=== PATIENT | male | born 1975 | race Two or more races ===

== ENCOUNTER 2020-12-08 17:36 | Inpatient (IN) | payer MEDICAID ==
[~2020-12-08] VITALS: Ht 180.3 cm; Wt 82.1 kg
[2020-12-08] MEDS ORDERED: ACETAMINOPHEN 500 MG TAB PO ONE (18:30)
[2020-12-08 18:48] LABS: Basophils # (auto) 0 10 ^3/uL (0-0.2); Eosinophils # (auto) 0 10 ^3/uL (0-0.8); Hematocrit 45.6 % (41.0-53.0); Hemoglobin 15.7 g/dL (13.5-17.5); Lymphocytes # (auto) 0.6 10 ^3/uL (0.4-5.4); Lymphocytes % (auto) 6.4 % (10.0-50.0); Mean Corpuscular Hemoglobin 29.1 pg (28.0-32.0); Mean Corpuscular Hgb Conc. 34.5 g/dL (32.0-36.0); Mean Corpuscular Volume 84.3 fL (80.0-100.0); Monocytes # (auto) 0.5 10 ^3/uL (0-1.3); Monocytes % (auto) 5.3 % (0.0-12.0); Neutrophils # (auto) 8.3 10 ^3/uL (1.6-8.6); Neutrophils % (auto) 88.3 % (37.0-80.0); Nucleated Red Blood Cells % 0.1 %; Red Blood Cells 5.41 10^6/uL (4.5-5.90); Red Cell Distribution Width 13.7 % (11.8-14.3); White Blood Cell 9.4 10^3/uL (4.4-10.8)
[2020-12-08] MEDS ORDERED: ZINC SULFATE 220mg CAP or TAB PO ONE (19:15)
[2020-12-08] MEDS ORDERED: methylPREDNISolone SOD SUCC 125 MG/2 ML VL IV ONE (19:15)
[2020-12-08] MEDS ORDERED: CHOLECALCIFEROL (VITD3) 2,000 UNIT CAP/TAB PO ONE (19:15)
[2020-12-08] MEDS ORDERED: ASCORBIC ACID 500 MG TAB PO ONE (19:15)
[2020-12-08] MEDS ORDERED: AZITHROMYCIN 500MG/ 250ML 250 ML IV ONE (19:15)
[2020-12-08 19:28] LABS: Albumin 2.9 g/dL (3.4-5.0); Anion Gap 9 (5-15); Blood Urea Nitrogen 18 mg/dL (7-18); Calcium 8.4 mg/dL (8.5-10.1); Carbon Dioxide 25 mmol/L (21-32); Chloride 100 mmol/L (98-107); Glucose 127 mg/dL (74-106); Potassium 4.4 mmol/L (3.5-5.1); Sodium 134 mmol/L (136-145)
[2020-12-08 19:30] LABS: Alanine Aminotransferase 89 U/L (16-61); Aspartate Aminotransferase 90 U/L (15-37); BUN/Creatinine Ratio 16.2; GFR African American 93 mL/min; GFR Non-African American 76 mL/min
[2020-12-08 19:33] LABS: Alkaline Phosphatase 223 U/L (45-117); Bilirubin, Total 0.8 mg/dL (0.2-1.0)
[2020-12-08] MEDS ORDERED: IOHEXOL 350 MG/ML 100ML IJ ONE (20:09)
[2020-12-08] MEDS ORDERED: NITROGLYCERIN 0.4 MG SL TAB SL PRN (21:45)
[2020-12-08] MEDS ORDERED: ONDANSETRON HCL 4 MG/2 ML VIAL IV PRN (21:45)
[2020-12-08] MEDS ORDERED: ACETAMINOPHEN 500 MG TAB PO PRN (21:45)
[2020-12-08] MEDS ORDERED: MORPHINE SULFATE INJECTION 2 MG/ML SYRG IV PRN (21:45)
[2020-12-08] MEDS ORDERED: HYDROcodone-ACET 5/325MG TAB PO PRN (21:45)
[2020-12-08] MEDS: ENOXAPARIN SOD 40 MG/0.4 ML SYRINGE SC SCH (22:17)
[2020-12-08] MEDS: DOXYCYCLINE 100MG/250ML 250 ML IV SCH (22:17)
[2020-12-08] MEDS: FAMOTIDINE (10MG/ML) 2ML VL IV SCH (22:17)
[2020-12-08] MEDS: BUDESONIDE (INHALATION) 180 MCG IH IN SCH (22:35)
[2020-12-09] VITALS (9 sets, daily range): BP systolic 104–116; BP diastolic 60–75
[2020-12-09 06:31] LABS: Potassium 4.6 mmol/L (3.5-5.1)
[2020-12-09 06:40] LABS: Albumin 2.5 g/dL (3.4-5.0); BUN/Creatinine Ratio 18.7; Bilirubin, Total 0.6 mg/dL (0.2-1.0); Calcium 8.2 mg/dL (8.5-10.1); Magnesium 3.4 mg/dL (1.6-2.6); Total Protein 7.3 g/dL (6.4-8.2)
[2020-12-09 07:36] LABS: Hematocrit 43.9 % (41.0-53.0); Hemoglobin 15.1 g/dL (13.5-17.5); Mean Corpuscular Hemoglobin 29.2 pg (28.0-32.0); Mean Corpuscular Hgb Conc. 34.4 g/dL (32.0-36.0); Mean Corpuscular Volume 84.9 fL (80.0-100.0); Red Blood Cells 5.18 10^6/uL (4.5-5.90); Red Cell Distribution Width 13.7 % (11.8-14.3); White Blood Cell 8.2 10^3/uL (4.4-10.8)
[2020-12-09 07:45] LABS: Basophils % (manual) 0 (0.0-2.0); Blast Cells 0; Eosinophils % (manual) 0 (0-7); Metamyelocytes % 0; Myelocytes % 0; Promyelocytes % 0; Reactive Lymphocytes 0
[2020-12-09 08:57] LABS: Band Neutrophils % (manual) 5; Lymphocytes % (manual) 6 (10.0-50.0); Monocytes % (manual) 2 (0-12)
[2020-12-09] MEDS: ZINC SULFATE 220mg CAP or TAB PO SCH (09:32)
[2020-12-09] MEDS: MULTIPLE VITAMIN TAB PO SCH (09:32)
[2020-12-09] MEDS: FAMOTIDINE (10MG/ML) 2ML VL IV SCH ×2 (09:33→22:36)
[2020-12-09] MEDS: CHOLECALCIFEROL (VITD3) 2,000 UNIT CAP/TAB PO SCH (09:33)
[2020-12-09] MEDS: ASCORBIC ACID 1,000 MG TAB PO SCH (09:33)
[2020-12-09] MEDS: DexAMETHasone SOD PHOS 10MG/1ML VIAL INJ IV SCH (09:33)
[2020-12-09] MEDS: DOXYCYCLINE 100MG/250ML 250 ML IV SCH ×2 (09:55→22:37)
[2020-12-09] MEDS: ENOXAPARIN SOD 40 MG/0.4 ML SYRINGE SC SCH ×2 (09:55→22:36)
[2020-12-09] MEDS: BUDESONIDE (INHALATION) 180 MCG IH IN SCH ×2 (10:00→22:10)
[2020-12-09] MEDS: ALBUTEROL SULF HFA 90MCG INH 200DOSE IN PRN ×2 (11:32→22:10)
[2020-12-09] MEDS ORDERED: REMDESIVIR PER PHARMACY 0 ML IV SCH (12:30)
[2020-12-09] MEDS ORDERED: REMDESIVIR 200 MG in NS 210ml LOADING DOSE ADULT IV ONE (15:00)
[2020-12-09] MEDS: IVERMECTIN 3 MG TAB PO SCH (15:08)
[2020-12-09] MEDS ORDERED: cefTRIAXone 1GM/50ML D5W 50 ML IV ONE (17:00)
[2020-12-10 05:00] VITALS: BP 106/68
[2020-12-10] MEDS: ALBUTEROL SULF HFA 90MCG INH 200DOSE IN PRN ×2 (07:40→18:59)
[2020-12-10] MEDS: BUDESONIDE (INHALATION) 180 MCG IH IN SCH ×2 (07:40→18:59)
[2020-12-10 08:54] VITALS: BP 121/73
[2020-12-10] MEDS: cefTRIAXone 1GM/50ML D5W 50 ML IV SCH (09:06)
[2020-12-10] MEDS: FAMOTIDINE (10MG/ML) 2ML VL IV SCH ×2 (09:07→21:37)
[2020-12-10] MEDS: ENOXAPARIN SOD 40 MG/0.4 ML SYRINGE SC SCH ×2 (09:07→21:38)
[2020-12-10] MEDS: MULTIPLE VITAMIN TAB PO SCH (09:07)
[2020-12-10] MEDS: ZINC SULFATE 220mg CAP or TAB PO SCH (09:07)
[2020-12-10] MEDS: DexAMETHasone SOD PHOS 10MG/1ML VIAL INJ IV SCH (09:07)
[2020-12-10] MEDS: CHOLECALCIFEROL (VITD3) 2,000 UNIT CAP/TAB PO SCH (09:07)
[2020-12-10] MEDS: IVERMECTIN 3 MG TAB PO SCH (09:07)
[2020-12-10] MEDS: ASCORBIC ACID 1,000 MG TAB PO SCH (09:07)
[2020-12-10] MEDS: DOXYCYCLINE 100MG/250ML 250 ML IV SCH ×2 (10:50→21:38)
[2020-12-10 13:00] VITALS: BP 122/77
[2020-12-10] MEDS: REMDESIVIR 100mg 100 MG in SODIUM CHL 0.9% 230 ML IV SCH (15:20)
[2020-12-10 17:00] VITALS: BP 117/76
[2020-12-10] MEDS ORDERED: TOCILIZUMAB 400 MG in SODIUM CHL 0.9% 80 ML IV ONE (17:00)
[2020-12-10 22:00] VITALS: BP 128/72
[2020-12-11] VITALS (7 sets, daily range): BP systolic 104–118; BP diastolic 67–74
[2020-12-11] MEDS: ALBUTEROL SULF HFA 90MCG INH 200DOSE IN PRN ×2 (07:40→21:46)
[2020-12-11] MEDS: BUDESONIDE (INHALATION) 180 MCG IH IN SCH ×2 (07:40→21:46)
[2020-12-11] MEDS ORDERED: TOCILIZUMAB 400 MG in SODIUM CHL 0.9% 80 ML IV ONE ×2 (08:00→09:00)
[2020-12-11] MEDS: FAMOTIDINE (10MG/ML) 2ML VL IV SCH ×2 (09:55→22:02)
[2020-12-11] MEDS: cefTRIAXone 1GM/50ML D5W 50 ML IV SCH (09:55)
[2020-12-11] MEDS: DexAMETHasone SOD PHOS 10MG/1ML VIAL INJ IV SCH (09:55)
[2020-12-11] MEDS: ASCORBIC ACID 1,000 MG TAB PO SCH (09:56)
[2020-12-11] MEDS: ZINC SULFATE 220mg CAP or TAB PO SCH (09:56)
[2020-12-11] MEDS: CHOLECALCIFEROL (VITD3) 2,000 UNIT CAP/TAB PO SCH (09:56)
[2020-12-11] MEDS: IVERMECTIN 3 MG TAB PO SCH (09:56)
[2020-12-11] MEDS: MULTIPLE VITAMIN TAB PO SCH (09:56)
[2020-12-11] MEDS: ENOXAPARIN SOD 40 MG/0.4 ML SYRINGE SC SCH ×2 (10:00→22:03)
[2020-12-11] MEDS: DOXYCYCLINE 100MG/250ML 250 ML IV SCH ×2 (10:47→22:03)
[2020-12-11] MEDS: REMDESIVIR 100mg 100 MG in SODIUM CHL 0.9% 230 ML IV SCH (15:01)
[2020-12-12 05:00] VITALS: BP 104/56
[2020-12-12 06:31] LABS: Hematocrit 44.5 % (41.0-53.0); Hemoglobin 15.6 g/dL (13.5-17.5); Mean Corpuscular Hemoglobin 29.8 pg (28.0-32.0); Mean Corpuscular Hgb Conc. 35.1 g/dL (32.0-36.0); Red Blood Cells 5.24 10^6/uL (4.5-5.90); Red Cell Distribution Width 13.7 % (11.8-14.3); White Blood Cell 6.3 10^3/uL (4.4-10.8)
[2020-12-12 06:34] LABS: Basophils % (manual) 0 (0.0-2.0); Blast Cells 0; Eosinophils % (manual) 0 (0-7); Promyelocytes % 0
[2020-12-12 06:48] LABS: Albumin 2.4 g/dL (3.4-5.0); Calcium 8.3 mg/dL (8.5-10.1); Potassium 4.8 mmol/L (3.5-5.1)
[2020-12-12 06:52] LABS: Band Neutrophils % (manual) 18; Lymphocytes % (manual) 16 (10.0-50.0); Metamyelocytes % 2; Monocytes % (manual) 2 (0-12); Myelocytes % 3; Reactive Lymphocytes 1
[2020-12-12 06:53] LABS: BUN/Creatinine Ratio 30.3; Bilirubin, Total 0.6 mg/dL (0.2-1.0); Total Protein 6.7 g/dL (6.4-8.2)
[2020-12-12 08:25] VITALS: BP 113/82
[2020-12-12 08:46] VITALS: BP 113/82
[2020-12-12] MEDS: BUDESONIDE (INHALATION) 180 MCG IH IN SCH ×2 (09:15→23:25)
[2020-12-12] MEDS: ALBUTEROL SULF HFA 90MCG INH 200DOSE IN PRN ×2 (09:15→23:25)
[2020-12-12] MEDS: cefTRIAXone 1GM/50ML D5W 50 ML IV SCH (09:18)
[2020-12-12] MEDS: FAMOTIDINE (10MG/ML) 2ML VL IV SCH ×2 (09:48→21:40)
[2020-12-12] MEDS: DexAMETHasone SOD PHOS 10MG/1ML VIAL INJ IV SCH (09:48)
[2020-12-12] MEDS: ZINC SULFATE 220mg CAP or TAB PO SCH (09:49)
[2020-12-12] MEDS: ENOXAPARIN SOD 40 MG/0.4 ML SYRINGE SC SCH ×2 (09:49→21:40)
[2020-12-12] MEDS: CHOLECALCIFEROL (VITD3) 2,000 UNIT CAP/TAB PO SCH (09:49)
[2020-12-12] MEDS: MULTIPLE VITAMIN TAB PO SCH (09:49)
[2020-12-12] MEDS: ASCORBIC ACID 1,000 MG TAB PO SCH (09:49)
[2020-12-12] MEDS: IVERMECTIN 3 MG TAB PO SCH (09:49)
[2020-12-12] MEDS: DOXYCYCLINE 100MG/250ML 250 ML IV SCH ×2 (10:37→21:40)
[2020-12-12 13:02] VITALS: BP 104/65
[2020-12-12] MEDS: REMDESIVIR 100mg 100 MG in SODIUM CHL 0.9% 230 ML IV SCH (15:22)
[2020-12-12 16:48] VITALS: BP 109/57
[2020-12-12 22:00] VITALS: BP 104/68
[2020-12-13 05:00] VITALS: BP 106/56
[2020-12-13 07:33] LABS: BUN/Creatinine Ratio 32.5; Calcium 8.2 mg/dL (8.5-10.1); Potassium 4.5 mmol/L (3.5-5.1)
[2020-12-13] MEDS: ALBUTEROL SULF HFA 90MCG INH 200DOSE IN PRN ×2 (07:50→19:31)
[2020-12-13] MEDS: BUDESONIDE (INHALATION) 180 MCG IH IN SCH ×2 (07:50→19:31)
[2020-12-13 08:07] LABS: Hematocrit 46.5 % (41.0-53.0); Hemoglobin 16.1 g/dL (13.5-17.5); Mean Corpuscular Hemoglobin 29.1 pg (28.0-32.0); Mean Corpuscular Hgb Conc. 34.5 g/dL (32.0-36.0); Mean Corpuscular Volume 84.2 fL (80.0-100.0); Red Blood Cells 5.52 10^6/uL (4.5-5.90); Red Cell Distribution Width 13.4 % (11.8-14.3); White Blood Cell 5.5 10^3/uL (4.4-10.8)
[2020-12-13 08:14] LABS: Basophils % (manual) 0 (0.0-2.0); Blast Cells 0; Myelocytes % 0; Promyelocytes % 0; Reactive Lymphocytes 0
[2020-12-13 08:15] VITALS: BP 106/58
[2020-12-13] MEDS: cefTRIAXone 1GM/50ML D5W 50 ML IV SCH (09:20)
[2020-12-13 09:29] VITALS: BP 106/58
[2020-12-13] MEDS: DexAMETHasone SOD PHOS 10MG/1ML VIAL INJ IV SCH (10:38)
[2020-12-13] MEDS: FAMOTIDINE (10MG/ML) 2ML VL IV SCH ×2 (10:39→21:57)
[2020-12-13] MEDS: MULTIPLE VITAMIN TAB PO SCH (10:39)
[2020-12-13] MEDS: IVERMECTIN 3 MG TAB PO SCH (10:39)
[2020-12-13] MEDS: ZINC SULFATE 220mg CAP or TAB PO SCH (10:39)
[2020-12-13] MEDS: ASCORBIC ACID 1,000 MG TAB PO SCH (10:39)
[2020-12-13] MEDS: DOXYCYCLINE 100MG/250ML 250 ML IV SCH (10:39)
[2020-12-13] MEDS: CHOLECALCIFEROL (VITD3) 2,000 UNIT CAP/TAB PO SCH (10:41)
[2020-12-13] MEDS: ENOXAPARIN SOD 40 MG/0.4 ML SYRINGE SC SCH ×2 (10:41→21:57)
[2020-12-13 12:19] LABS: Band Neutrophils % (manual) 5; Eosinophils % (manual) 1 (0-7); Lymphocytes % (manual) 10 (10.0-50.0); Metamyelocytes % 1; Monocytes % (manual) 9 (0-12)
[2020-12-13 13:00] VITALS: BP 105/65
[2020-12-13] MEDS: REMDESIVIR 100mg 100 MG in SODIUM CHL 0.9% 230 ML IV SCH (15:06)
[2020-12-13 17:10] VITALS: BP 100/65
[2020-12-13 22:00] VITALS: BP 111/65
[2020-12-14 05:00] VITALS: BP 103/62
[2020-12-14] MEDS: ALBUTEROL SULF HFA 90MCG INH 200DOSE IN PRN ×2 (07:08→22:37)
[2020-12-14] MEDS: BUDESONIDE (INHALATION) 180 MCG IH IN SCH ×2 (07:08→22:37)
[2020-12-14 08:15] VITALS: BP 108/65
[2020-12-14 09:11] VITALS: BP 108/65
[2020-12-14] MEDS: cefTRIAXone 1GM/50ML D5W 50 ML IV SCH (09:28)
[2020-12-14] MEDS: DexAMETHasone SOD PHOS 10MG/1ML VIAL INJ IV SCH (09:43)
[2020-12-14] MEDS: ZINC SULFATE 220mg CAP or TAB PO SCH (09:43)
[2020-12-14] MEDS: MULTIPLE VITAMIN TAB PO SCH (09:43)
[2020-12-14] MEDS: ASCORBIC ACID 1,000 MG TAB PO SCH (09:43)
[2020-12-14] MEDS: FAMOTIDINE (10MG/ML) 2ML VL IV SCH ×2 (09:43→22:21)
[2020-12-14] MEDS: ENOXAPARIN SOD 40 MG/0.4 ML SYRINGE SC SCH ×2 (09:44→22:22)
[2020-12-14] MEDS: CHOLECALCIFEROL (VITD3) 2,000 UNIT CAP/TAB PO SCH (09:44)
[2020-12-14 12:27] VITALS: BP 97/63
[2020-12-14 17:23] VITALS: BP 116/72
[2020-12-14 22:00] VITALS: BP 110/67
[2020-12-15 01:44] VITALS: BP 110/67
[2020-12-15 05:00] VITALS: BP 101/69
[2020-12-15] MEDS: BUDESONIDE (INHALATION) 180 MCG IH IN SCH ×2 (05:58→20:03)
[2020-12-15] MEDS: ALBUTEROL SULF HFA 90MCG INH 200DOSE IN PRN ×2 (05:58→20:03)
[2020-12-15 06:04] LABS: Hematocrit 46.4 % (41.0-53.0); Hemoglobin 16.1 g/dL (13.5-17.5); Mean Corpuscular Hemoglobin 29.2 pg (28.0-32.0); Mean Corpuscular Hgb Conc. 34.8 g/dL (32.0-36.0); Red Blood Cells 5.52 10^6/uL (4.5-5.90); Red Cell Distribution Width 13.4 % (11.8-14.3); White Blood Cell 6.6 10^3/uL (4.4-10.8)
[2020-12-15 06:26] LABS: Basophils % (manual) 0 (0.0-2.0); Blast Cells 0; Metamyelocytes % 0; Myelocytes % 0; Promyelocytes % 0; Reactive Lymphocytes 0
[2020-12-15 08:44] VITALS: BP 102/63
[2020-12-15 09:03] LABS: Band Neutrophils % (manual) 1; Eosinophils % (manual) 1 (0-7); Lymphocytes % (manual) 10 (10.0-50.0); Monocytes % (manual) 8 (0-12)
[2020-12-15] MEDS: ZINC SULFATE 220mg CAP or TAB PO SCH (10:17)
[2020-12-15] MEDS: cefTRIAXone 1GM/50ML D5W 50 ML IV SCH (10:17)
[2020-12-15] MEDS: ASCORBIC ACID 1,000 MG TAB PO SCH (10:17)
[2020-12-15] MEDS: CHOLECALCIFEROL (VITD3) 2,000 UNIT CAP/TAB PO SCH (10:17)
[2020-12-15] MEDS: FAMOTIDINE (10MG/ML) 2ML VL IV SCH ×2 (10:17→22:01)
[2020-12-15] MEDS: MULTIPLE VITAMIN TAB PO SCH (10:17)
[2020-12-15] MEDS: DexAMETHasone SOD PHOS 10MG/1ML VIAL INJ IV SCH (10:17)
[2020-12-15] MEDS: ENOXAPARIN SOD 40 MG/0.4 ML SYRINGE SC SCH ×2 (10:17→22:01)
[2020-12-15] MEDS ORDERED: FUROSEMIDE 20 MG/2 ML VIAL IV ONE (11:15)
[2020-12-15 13:00] VITALS: BP 113/57
[2020-12-15 17:00] VITALS: BP 105/66
[2020-12-16 05:00] VITALS: BP 104/50
[2020-12-16 06:41] LABS: Hematocrit 48.5 % (41.0-53.0); Hemoglobin 17.2 g/dL (13.5-17.5); Mean Corpuscular Hgb Conc. 35.4 g/dL (32.0-36.0); Mean Corpuscular Volume 84.7 fL (80.0-100.0); Red Blood Cells 5.73 10^6/uL (4.5-5.90); Red Cell Distribution Width 13.6 % (11.8-14.3)
[2020-12-16 06:54] LABS: Basophils % (manual) 0 (0.0-2.0); Blast Cells 0; Eosinophils % (manual) 0 (0-7); Myelocytes % 0; Promyelocytes % 0; Reactive Lymphocytes 0
[2020-12-16 06:57] LABS: Albumin 2.6 g/dL (3.4-5.0); Calcium 8.4 mg/dL (8.5-10.1)
[2020-12-16 07:01] LABS: Bilirubin, Total 0.9 mg/dL (0.2-1.0); CRP High Sensitivity 0.3 mg/dL (< 0.3); Total Protein 6.4 g/dL (6.4-8.2)
[2020-12-16] MEDS: BUDESONIDE (INHALATION) 180 MCG IH IN SCH ×2 (07:47→19:46)
[2020-12-16 08:00] VITALS: BP 94/62
[2020-12-16 08:40] LABS: Band Neutrophils % (manual) 3; Lymphocytes % (manual) 25 (10.0-50.0); Metamyelocytes % 1; Monocytes % (manual) 2 (0-12)
[2020-12-16 09:00] VITALS: BP 94/62
[2020-12-16] MEDS ORDERED: IOHEXOL 350 MG/ML 100ML IJ ONE (09:54)
[2020-12-16] MEDS: FUROSEMIDE 20 MG/2 ML VIAL IV SCH (10:00)
[2020-12-16] MEDS: cefTRIAXone 1GM/50ML D5W 50 ML IV SCH (11:36)
[2020-12-16] MEDS: FAMOTIDINE (10MG/ML) 2ML VL IV SCH ×2 (11:36→21:23)
[2020-12-16] MEDS: CHOLECALCIFEROL (VITD3) 2,000 UNIT CAP/TAB PO SCH (11:37)
[2020-12-16] MEDS: ZINC SULFATE 220mg CAP or TAB PO SCH (11:37)
[2020-12-16] MEDS: ASCORBIC ACID 1,000 MG TAB PO SCH (11:37)
[2020-12-16] MEDS: ENOXAPARIN SOD 80 MG/0.8ML SYRINGE SC SCH ×2 (11:37→21:23)
[2020-12-16] MEDS: MULTIPLE VITAMIN TAB PO SCH (11:37)
[2020-12-16] MEDS: DexAMETHasone SOD PHOS 10MG/1ML VIAL INJ IV SCH (11:38)
[2020-12-16 13:00] VITALS: BP 101/67
[2020-12-16 17:00] VITALS: BP 104/62
[2020-12-16] MEDS: ALBUTEROL SULF HFA 90MCG INH 200DOSE IN PRN (19:46)
[2020-12-16 22:00] VITALS: BP 113/65
[2020-12-17 05:00] VITALS: BP 108/70
[2020-12-17 09:00] VITALS: BP 108/64
[2020-12-17] MEDS: FAMOTIDINE (10MG/ML) 2ML VL IV SCH ×2 (09:57→21:25)
[2020-12-17] MEDS: FUROSEMIDE 20 MG/2 ML VIAL IV SCH (09:58)
[2020-12-17] MEDS: DexAMETHasone SOD PHOS 10MG/1ML VIAL INJ IV SCH (09:59)
[2020-12-17] MEDS: ENOXAPARIN SOD 80 MG/0.8ML SYRINGE SC SCH ×2 (09:59→21:25)
[2020-12-17] MEDS: CHOLECALCIFEROL (VITD3) 2,000 UNIT CAP/TAB PO SCH (09:59)
[2020-12-17] MEDS: MULTIPLE VITAMIN TAB PO SCH (09:59)
[2020-12-17] MEDS: ASCORBIC ACID 1,000 MG TAB PO SCH (09:59)
[2020-12-17] MEDS: ZINC SULFATE 220mg CAP or TAB PO SCH (09:59)
[2020-12-17] MEDS: ALBUTEROL SULF HFA 90MCG INH 200DOSE IN PRN ×2 (10:09→22:48)
[2020-12-17] MEDS: BUDESONIDE (INHALATION) 180 MCG IH IN SCH ×2 (10:09→22:48)
[2020-12-17 13:00] VITALS: BP 104/66
[2020-12-17 17:00] VITALS: BP 104/60
[2020-12-17 20:39] VITALS: BP 104/60
[2020-12-17 22:11] VITALS: BP 110/66
[2020-12-18 05:30] VITALS: BP 100/54
[2020-12-18 09:00] VITALS: BP 101/65
[2020-12-18] MEDS: DexAMETHasone SOD PHOS 10MG/1ML VIAL INJ IV SCH (09:57)
[2020-12-18] MEDS: MULTIPLE VITAMIN TAB PO SCH (09:57)
[2020-12-18] MEDS: FAMOTIDINE (10MG/ML) 2ML VL IV SCH ×2 (09:57→20:58)
[2020-12-18] MEDS: ZINC SULFATE 220mg CAP or TAB PO SCH (09:57)
[2020-12-18] MEDS: ASCORBIC ACID 1,000 MG TAB PO SCH (09:57)
[2020-12-18] MEDS: ENOXAPARIN SOD 80 MG/0.8ML SYRINGE SC SCH ×2 (09:57→20:58)
[2020-12-18] MEDS: FUROSEMIDE 20 MG/2 ML VIAL IV SCH (09:58)
[2020-12-18] MEDS: CHOLECALCIFEROL (VITD3) 2,000 UNIT CAP/TAB PO SCH (09:58)
[2020-12-18] MEDS: ALBUTEROL SULF HFA 90MCG INH 200DOSE IN PRN ×2 (10:02→22:28)
[2020-12-18] MEDS: BUDESONIDE (INHALATION) 180 MCG IH IN SCH ×2 (10:03→22:28)
[2020-12-18 13:00] VITALS: BP 107/70
[2020-12-18 17:00] VITALS: BP 109/69
[2020-12-18 21:58] VITALS: BP 120/73
[2020-12-19 05:22] VITALS: BP 124/77
[2020-12-19 09:00] VITALS: BP 116/75
[2020-12-19] MEDS: ASCORBIC ACID 1,000 MG TAB PO SCH (10:19)
[2020-12-19] MEDS: ZINC SULFATE 220mg CAP or TAB PO SCH (10:19)
[2020-12-19] MEDS: CHOLECALCIFEROL (VITD3) 2,000 UNIT CAP/TAB PO SCH (10:19)
[2020-12-19] MEDS: MULTIPLE VITAMIN TAB PO SCH (10:19)
[2020-12-19] MEDS: DexAMETHasone SOD PHOS 10MG/1ML VIAL INJ IV SCH (10:20)
[2020-12-19] MEDS: ENOXAPARIN SOD 80 MG/0.8ML SYRINGE SC SCH ×2 (10:20→21:59)
[2020-12-19] MEDS: FAMOTIDINE (10MG/ML) 2ML VL IV SCH ×2 (10:20→21:58)
[2020-12-19] MEDS: FUROSEMIDE 20 MG/2 ML VIAL IV SCH (10:20)
[2020-12-19] MEDS: BUDESONIDE (INHALATION) 180 MCG IH IN SCH (10:24)
[2020-12-19] MEDS: ALBUTEROL SULF HFA 90MCG INH 200DOSE IN PRN (10:24)
[2020-12-19 13:00] VITALS: BP 109/71
[2020-12-19] MEDS ORDERED: ERGO1CAP23 PO (16:06)
[2020-12-19 17:00] VITALS: BP 110/69
[2020-12-19 17:41] VITALS: BP 116/75
[2020-12-19 22:00] VITALS: BP 111/79
== END 2020-12-19 23:00 | disposition home or self-care (01) | DRG 137 ==
LOC: ER 17:36 → TELE 21:40 → TELE-EAST 23:25
PROVIDERS: ADMIT Nurse Practitioner Family; ATTEND Internal Medicine
PROC: XW033E5 Introduction of Remdesivir Anti-infective into Peripheral Vein, Percutaneous Approach, New Technology Group 5 (ICD-10-PCS; principal; 2020-12-09)
PROC: XW033H5 Introduction of Tocilizumab into Peripheral Vein, Percutaneous Approach, New Technology Group 5 (ICD-10-PCS; 2020-12-10)
DX: U07.1 COVID-19 (principal); J96.01 Acute respiratory failure with hypoxia; J12.82 Pneumonia due to coronavirus disease 2019; E87.1 Hypo-osmolality and hyponatremia; D68.59 Other primary thrombophilia; E83.41 Hypermagnesemia; D89.839 Cytokine release syndrome, grade unspecified; E88.09 Other disorders of plasma-protein metabolism, not elsewhere classified; R73.03 Prediabetes; R79.89 Other specified abnormal findings of blood chemistry
CPT/HCPCS: 36415; 36600; 71045; 71275; 80048; 80053; 82306; 82728; 82805; 83036; 83605; 83615; 83735; 84132; 84484; 85007; 85025; 85027; 85379; 86141; 87040; 87070; 87205; 87426; 93005; 93970; 94640; 96365; 96375; 99291; G0378; J0696; J1100; J3490